=== PATIENT | female | born 1960 | race Caucasian/White ===

== ENCOUNTER 2019-01-04 08:40 | Day surgery (SDC) | payer OTHER ==
[2019-01-03 11:33] VITALS: BMI 25.7
--- NOTE | 2019-01-04 10:56 | OP ---
Operative Note - Note: Operative Date: 01/04/19 Pre-Operative Diagnosis: Right renal calculus Operation: Right Lithotripsy Findings: 8 mm right renal stone Post-Operative Diagnosis: Same as Pre-op Surgeon: Jasbir Guzman MD. Anesthesia: General Operative Report Dictated: Yes
[2019-01-04] MEDS ORDERED: ELECTROLYTE-148 SOLN 1,000 ML IV SCH (11:00)
[2019-01-04] MEDS ORDERED: MIDAZOLAM HCL 2 MG/2 ML SINGLE DOSE VIAL ONE (11:09)
[2019-01-04] MEDS ORDERED: ceFAZolin SODIUM 1 GM VIAL IVPB ONE (11:15)
[2019-01-04 12:03] VITALS: PULSE 61
--- NOTE | 2019-01-04 12:08 | OP ---
DATE OF OPERATION: 01/04/2019 PREOPERATIVE DIAGNOSIS: Right renal stone. POSTOPERATIVE DIAGNOSIS: Right renal stone. PROCEDURE: Right extracorporeal shock-wave lithotripsy. HISTORY: This is a pleasant 58-year-old female with a history of a renal calculi. Preoperative imaging revealed a right renal calculus. After discussing treatment options, the patient elected to undergo the above-stated procedure. Risks and benefits of treatment and alternative treatments were discussed in detail. All questions were answered. DESCRIPTION OF PROCEDURE: The patient was brought to the operating room and placed in supine position. General anesthesia was administered. Patient was turned to dorsal lithotomy position and prepped and draped in standard sterile fashion. Intravenous antibiotics were given. Again, once the stone was localized using 3D fluoroscopy as well as ultrasonography, a time-out was performed, and intravenous Ancef was given. At this time, 2500 shocks were delivered in electromagnetic fashion. The patient tolerated the procedure well and was brought to the recovery room in stable and satisfactory condition. Cindy [id number]
[2019-01-04] MEDS ORDERED: PROPOFOL 20 ML ONE (13:23)
[2019-01-04] MEDS ORDERED: SUCCINYLCHOLINE CHLORIDE 200 MG/10 ML SYRINGE ONE (13:24)
[2019-01-04 14:22] VITALS: BP 112/62; TEMP 98.2
== END 2019-01-04 13:00 | disposition home or self-care (01) ==
LOC: JASU-SURG 08:40
PROVIDERS: ATTEND Urology
PROC: 0TF3XZZ Fragmentation in Right Kidney Pelvis, External Approach (ICD-10-PCS; principal; 2019-01-04 10:45)
DX: N20.0 Calculus of kidney (principal); I10 Essential (primary) hypertension; E11.9 Type 2 diabetes mellitus without complications
CPT/HCPCS: 82962

== ENCOUNTER 2019-04-12 07:54 | Day surgery (SDC) | payer OTHER ==
[2019-04-11 12:54] VITALS: BMI 24.9
[2019-04-12 08:32] VITALS: TEMP 97.5
[2019-04-12] MEDS ORDERED: MIDAZOLAM HCL 2 MG/2 ML SINGLE DOSE VIAL ONE ×2 (10:04)
[2019-04-12] MEDS ORDERED: ceFAZolin SODIUM 1 GM VIAL IVPB ONE (10:05)
--- NOTE | 2019-04-12 11:40 | OP ---
Operative Note - Note: Operative Date: 04/12/19 Pre-Operative Diagnosis: Right kidney stone Operation: Right ESWL Findings: 5 mm right renal stone Post-Operative Diagnosis: Same as Pre-op Surgeon: Jasbir Guzman MD. Anesthesia: General Operative Report Dictated: Yes
[2019-04-12] MEDS ORDERED: ELECTROLYTE-148 SOLN 1,000 ML IV SCH (11:45)
[2019-04-12 12:43] VITALS: BP 96/56; PULSE 56
--- NOTE | 2019-04-12 13:54 | OP ---
DATE OF OPERATION: 04/12/2019 PREOPERATIVE DIAGNOSIS: Right renal calculus. POSTOPERATIVE DIAGNOSIS: Right renal calculus. PROCEDURE: Right lithotripsy. HISTORY: This is a 58-year-old female with history of prior calculi. Discussing treatment options, the patient elected to undergo the above-stated procedure for 5-mm renal calculi on the right side. Informed consent was administered. BRIEF OPERATIVE NOTE: Patient brought into the operating room and placed in supine position. Once general anesthesia was administered, the stone was localized using 3-D fluoroscopy. At this time, approximately 2500 shocks were delivered in fashion. The stone appeared to fragment radiographically. Patient was then brought to the recovery room in stable and satisfactory condition. GLORIA WHEATLEY M.D. [id number]
== END 2019-04-12 12:46 | disposition home or self-care (01) ==
LOC: JASU-SURG 07:54
PROVIDERS: ATTEND Urology
PROC: 0TF3XZZ Fragmentation in Right Kidney Pelvis, External Approach (ICD-10-PCS; principal; 2019-04-12 09:45)
DX: N20.0 Calculus of kidney (principal)
CPT/HCPCS: 82962